=== PATIENT | female | born 1995 ===

== ENCOUNTER 2016-10-29 10:42 | Emergency (ER) | payer MEDICAID ==
[2016-10-29 10:47] VITALS: BP 133/89; RESP 19; TEMP 98.5; O2SAT 100; BMI 31.3
--- NOTE | 2016-10-29 11:11 | ED PDOC ---
HPI: Allergic Reaction Time Seen by Provider: 10/29/16 10:50 Chief Complaint (Nursing): Allergic Reaction Chief Complaint (Provider): Allergic Reaction History Per: Patient History/Exam Limitations: no limitations Onset/Duration Of Symptoms: Hrs Current Symptoms Are (Timing): Still Present Additional Complaint(s): 21 y/o female who presents to the emergency department with a possible allergic reaction to benzocaine after being introduced to the substance while getting dental work on 10/29/2016. Patient reports dentist applied gel to the mouth and instantly felt burning and redness of the mouth, swelling sensation of the lips and tongue, and hard to swallow because her mouth was too dry. Denies shortness of breath, chest pain, speech changes, vision changes, numbness, tingling, drooling or itchiness. No weakness. Thinks she may have swollen some of the benzocaine. Some rendness to her neck after the incident as well. PMD: Dr. Gisel Howe MD Past Medical History Reviewed: Historical Data, Nursing Documentation, Vital Signs Vital Signs: Last Vital Signs Temp 98.5 F 10/29/16 11:03 Pulse 93 H 10/29/16 11:03 Resp 19 10/29/16 11:03 BP 133/89 10/29/16 11:03 Pulse Ox 100 10/29/16 11:03 - Medical History PMH: Anxiety, HTN, Pneumonia (2008), Chronic Pain (chronic pelvic pain) Denies: Chronic Kidney Disease - Surgical History Surgical History: No Surg Hx - Family History Family History: States: Unknown Family Hx - Living Arrangements Living Arrangements: With Family - Social History Current smoker - smoking cessation education provided: Yes (Light Smoker < 10 Cigarettes Daily) Alcohol: None Drugs: Denies - Immunization History Hx Tetanus Toxoid Vaccination: No Hx Influenza Vaccination: No Hx Pneumococcal Vaccination: No - Home Medications Home Medications: Ambulatory Orders Medication Instructions Recorded Ibuprofen [Motrin Tab] 800 mg PO Q8 PRN 07/22/14 traMADol [Ultram] 25 mg PO STAT PRN #010 tab 09/01/14 Oxycodone HCl/Acetaminophen 1 tab PO Q4 #10 tab 10/01/14 [Percocet 325 mg-5 mg] oxyCODONE/Acetaminophen [Percocet 1 ea PO BID PRN #8 tab 10/29/14 5/325 mg Tab] oxyCODONE/Acetaminophen [Percocet 1 tab PO Q6H PRN #10 tab 11/27/14 5/325 mg Tab] oxyCODONE/Acetaminophen [Percocet 1 ea PO Q6H PRN #8 tab 12/31/14 5/325 mg Tab] DiphenhydrAMINE [Benadryl] 25 mg PO Q8H PRN 5 Days 10/29/16 predniSONE [predniSONE Tab] 20 mg PO BID 5 Days 10/29/16 - Allergies Allergies/Adverse Reactions: Allergies Allergy/AdvReac Type Severity Reaction Status Date / Time benzocaine Allergy RASH Verified 10/29/16 11:02 morphine Allergy SWELLING Verified 10/29/16 11:02 peanut Allergy RASH Verified 10/29/16 11:02 Review of Systems ROS Statement: Except As Marked, All Systems Reviewed And Found Negative Constitutional: Negative for: Other (pt. has no Numbness, tingling, drooling or itchiness of the mouth) Eyes: Negative for: Vision Change ENT: Positive for: Other (Burning and redness of the mouth with swelling sensation of the lips and tongue. Difficulty swallowing due to dry mouth. ). Negative for: Nose Pain, Nose Discharge, Nose Congestion, Throat Pain Cardiovascular: Negative for: Chest Pain Respiratory: Negative for: Cough, Shortness of Breath Gastrointestinal: Negative for: Nausea, Vomiting, Abdominal Pain Skin: Positive for: Rash Neurological: Negative for: Weakness, Change in Speech Physical Exam - Reviewed Nursing Documentation Reviewed: Yes Vital Signs Reviewed: Yes - Physical Exam Appears: Positive for: Non-toxic, No Acute Distress Head Exam: Positive for: ATRAUMATIC, NORMOCEPHALIC Skin: Positive for: Warm, Dry. Negative for: Normal Color (Slight raised mild blanching and erythema on the skin on the left lower abdomen and suprapubic region. Few patches of blanching and erythema on the left and ride side of the neck and face. Appearance of urticarial fashion. No discharge, fluctuant, or induration. ) Eye Exam: Positive for: Normal appearance, EOMI, PERRL ENT: Positive for: Normal ENT Inspection (Swallowing without difficulty; ). Negative for: Nasal Congestion, Pharyngeal Erythema, Other (No oral swelling. Non tenderness and non-swelling of the lips and tongue. No erythema or rash on the mouth.) Neck: Positive for: Painless ROM, Supple Cardiovascular/Chest: Positive for: Regular Rate, Rhythm. Negative for: Edema Respiratory: Positive for: Normal Breath Sounds Gastrointestinal/Abdominal: Positive for: Bowel Sounds, Soft. Negative for: Tenderness Back: Positive for: Normal Inspection. Negative for: L CVA Tenderness, R CVA Tenderness Extremity: Positive for: Normal ROM. Negative for: Tenderness, Pedal Edema Neurologic/Psych: Positive for: Alert, Oriented - ECG O2 Sat by Pulse Oximetry: 100 (RA) Pulse Ox Interpretation: Normal - Progress ED Course And Treament: 1205: Pt. walking around room. Talking with no issues. Swallowing and tolerated PO. Fu with pcp. No swelling of tongue or lip. AAOx3. - Critical Care Notes:: Time: 10:50 Initial impression: Allergic Reaction Initial plan: --ED Urine (POC) --Benadryl 25 mg PO --Prednisone 60 mg PO --Revaluation Scribe Attestation: Documented by Jeannette Peterson, acting as a scribe for Guillermo Martin MD. Provider Scribe Attestation: All medical record entries made by the Scribe were at my direction and personally dictated by me. I have reviewed the chart and agree that the record accurately reflects my personal performance of the history, physical exam, medical decision making, and the department course for this patient. I have also personally directed, reviewed, and agree with the discharge instructions and disposition. Disposition - Clinical Impression Clinical Impression: Allergic reaction - Patient ED Disposition Is Patient to be Admitted: No Counseled Patient/Family Regarding: Diagnosis, Need For Followup, Rx Given - Disposition Referrals: [facility] [place] [Outside] - 10/31/16 Disposition: Routine/Home Disposition Time: 12:06 Condition: STABLE Additional Instructions: Return if not better in 3 days. Prescriptions: DiphenhydrAMINE [Benadryl] 25 mg PO Q8H PRN 5 Days PRN Reason: Rash predniSONE [predniSONE Tab] 20 mg PO BID 5 Days Instructions: General Allergic Reaction (ED)
[2016-10-29 12:14] VITALS: PULSE 89
== END 2016-10-29 12:14 | disposition home or self-care (01) ==
LOC: H.ER 10:42
DX: T78.40XA Allergy, unspecified, initial encounter (principal); I10 Essential (primary) hypertension